=== PATIENT | male | born 1970 | race African-American/Black ===

== ENCOUNTER 2016-07-10 11:31 | Emergency (ER) | payer MEDICAID, OTHER ==
[~2016-07-10] VITALS: Ht 182.9 cm; Wt 81.6 kg
[2016-07-10 12:41] VITALS: BP 126/83
== END 2016-07-10 13:02 | disposition home or self-care (01) ==
LOC: ER 11:32
DX: S80.262A Insect bite (nonvenomous), left knee, initial encounter (principal); L08.9 Local infection of the skin and subcutaneous tissue, unspecified; F17.210 Nicotine dependence, cigarettes, uncomplicated; W57.XXXA Bitten or stung by nonvenomous insect and other nonvenomous arthropods, initial encounter; Y93.89 Activity, other specified; Y99.8 Other external cause status; Y92.85 Railroad track as the place of occurrence of the external cause

== ENCOUNTER → 2017-01-08 11:11 | Emergency (ER) | payer SELFPAY ==
[~2017-01-08] VITALS: Ht 182.9 cm; Wt 97.5 kg
[2017-01-08 12:15] LABS: Basophils # (auto) 0 uL; Basophils % (auto) 0.2 % (0.0-2.0); CONDITION Y; Eosinophils # (auto) 0.1 uL; Eosinophils % (auto) 0.5 % (0.0-7.0); Hematocrit 42.3 % (41.0-53.0); Hemoglobin 13.9 g/dL (13.5-17.5); Lymphocytes # (auto) 2.7 uL; Lymphocytes % (auto) 28.2 % (10.0-50.0); Mean Corpuscular Hemoglobin 29.9 pg (28.0-32.0); Mean Corpuscular Hgb Conc. 32.9 g/dL (32.0-36.0); Mean Corpuscular Volume 90.9 fL (80.0-100.0); Mean Platelet Volume 9.4 fL (7.4-10.4); Monocytes # (auto) 1.1 uL; Monocytes % (auto) 11.4 % (0.0-12.0); Neutrophils # (auto) 5.7 uL; Neutrophils % (auto) 59.7 % (37.0-80.0); Platelet Count (auto) 263 10^3/uL (140-450); Red Cell Distribution Width 13.6 % (11.6-16.0); White Blood Cell 9.6 10^3/uL (4.4-10.8)
[2017-01-08 12:26] VITALS: BP 140/79
[2017-01-08 12:37] LABS: INR 0.94 (0.9-1.15); Partial Thromboplastin Time 27.4 sec (22.64-33.71); Prothrombin Time 10.2 sec (9.37-12.3)
[2017-01-08 12:41] LABS: Urine Bilirubin Negative (Negative); Urine Blood Negative /uL (Negative); Urine Color Yellow (Yellow); Urine Glucose Normal (Normal); Urine Ketone Negative (Negative); Urine Mucus FEW (None Seen); Urine Nitrite Negative (Negative); Urine RBC 1 /hpf (0 - 3); Urine Squamous Epithelial Cell FEW /hpf (<5)
[2017-01-08 12:46] LABS: Albumin 3.4 g/dL (3.4-5.0); BUN/Creatinine Ratio 9.8; Bilirubin, Total 0.6 mg/dL (0.2-1.0); Calcium 9.1 mg/dL (8.5-10.1); Potassium 4.3 mmol/L (3.5-5.1); Total Protein 8.1 g/dL (6.4-8.2)
== END | disposition home or self-care (01) ==
LOC: ER 11:11
DX: K64.8 Other hemorrhoids (principal); F17.210 Nicotine dependence, cigarettes, uncomplicated
CPT/HCPCS: 36415; 80053; 81001; 85025; 85610; 85730

== ENCOUNTER 2017-09-29 20:21 | Emergency (ER) | payer OTHER ==
[~2017-09-29] VITALS: Ht 182.9 cm; Wt 95.3 kg
[2017-09-29 21:14] LABS: Basophils # (auto) 0.1 uL; Basophils % (auto) 1.2 % (0.0-2.0); Eosinophils # (auto) 0 uL; Eosinophils % (auto) 0.3 % (0.0-7.0); Hematocrit 42.4 % (41.0-53.0); Hemoglobin 14.3 g/dL (13.5-17.5); Lymphocytes # (auto) 3.6 uL; Lymphocytes % (auto) 28.8 % (10.0-50.0); Mean Corpuscular Hemoglobin 29.3 pg (28.0-32.0); Mean Corpuscular Hgb Conc. 33.6 g/dL (32.0-36.0); Monocytes # (auto) 1.3 uL; Monocytes % (auto) 10.5 % (0.0-12.0); Neutrophils # (auto) 7.4 uL; Neutrophils % (auto) 59.2 % (37.0-80.0); Platelet Count (auto) 218 10^3/uL (140-450); Red Blood Cells 4.87 10^6/uL (4.5-5.90); Red Cell Distribution Width 13.6 % (11.8-14.3); White Blood Cell 12.5 10^3/uL (4.4-10.8)
[2017-09-29] MEDS ORDERED: LORazepam 2MG/ML-1ML VIAL IV ONE (21:15)
[2017-09-29] MEDS ORDERED: diphenhdrAMINE HCL 50 MG/1 ML VL IV ONE (21:15)
[2017-09-29 21:47] LABS: Alcohol, Urine < 3.0 mg/dL (0-5); Barbiturate Scree,Urine NEGATIVE (NEGATIVE); Opiate Scree,Urine NEGATIVE (NEGATIVE)
[2017-09-29 21:48] LABS: Amphetamine Screen, Urine POSITIVE (NEGATIVE); Benzodiazephine Screen, Urine NEGATIVE (NEGATIVE); Cannabinoid Screen, Urine NEGATIVE (NEGATIVE); Cocaine Screen, Urine NEGATIVE (NEGATIVE); Phencyclidine Screen, Urine NEGATIVE (NEGATIVE)
[2017-09-29 21:52] LABS: Anion Gap 11 (5-15); Carbon Dioxide 20 mmol/L (21-32); Chloride 107 mmol/L (98-107); Glucose 110 mg/dL (74-106); Potassium 3.7 mmol/L (3.5-5.1); Sodium 138 mmol/L (136-145)
[2017-09-29 21:53] LABS: Alanine Aminotransferase 29 U/L (16-61); Alkaline Phosphatase 82 U/L (45-117); Aspartate Aminotransferase 39 U/L (15-37); BUN/Creatinine Ratio 12.3; Bilirubin, Total 1.4 mg/dL (0.2-1.0); Blood Urea Nitrogen 18 mg/dL (7-18); Calcium 9.2 mg/dL (8.5-10.1); GFR African American 67 mL/min; GFR Non-African American 56 mL/min; Total Protein 9.6 g/dL (6.4-8.2)
[2017-09-29 21:54] LABS: Albumin 3.8 g/dL (3.4-5.0); Blood Alcohol < 3.0 mg/dL (0-5)
[2017-09-29 23:12] VITALS: BP 145/88
== END 2017-09-29 23:16 | disposition home or self-care (01) ==
LOC: ER 20:21
DX: F41.9 Anxiety disorder, unspecified (principal); F17.210 Nicotine dependence, cigarettes, uncomplicated; M79.641 Pain in right hand
CPT/HCPCS: 36415; 73120; 80053; 80307; 80320; 85025; 96374; 96375; 99285; J1200; J2060

== ENCOUNTER 2019-08-18 14:40 | Emergency (ER) | payer MEDICAID, OTHER ==
[~2019-08-18] VITALS: Ht 185.4 cm; Wt 84.4 kg
[2019-08-18 15:23] VITALS: BP 107/79
== END 2019-08-18 15:24 | disposition home or self-care (01) ==
LOC: EDBD 14:40 → ER 14:42
DX: J20.9 Acute bronchitis, unspecified (principal)

== ENCOUNTER 2019-11-09 19:34 | Emergency (ER) | payer MEDICAID, OTHER ==
[~2019-11-09] VITALS: Ht 182.9 cm; Wt 64.0 kg
[2019-11-09] MEDS ORDERED: LIDOCAINE 1% HCL (LOCAL ANESTH.) INJ 20ML MDV IJ ONE (20:15)
[2019-11-09] MEDS ORDERED: methylPREDNISolone SOD SUCC 125 MG/2 ML VL IM ONE (20:15)
[2019-11-09] MEDS ORDERED: cefTRIAXone SOD 1,000 MG VL IM ONE (20:15)
[2019-11-09 20:29] VITALS: BP 141/100
== END 2019-11-09 20:55 | disposition home or self-care (01) ==
LOC: ER 19:34
DX: G51.0 Bell's palsy (principal); H65.93 Unspecified nonsuppurative otitis media, bilateral; J01.00 Acute maxillary sinusitis, unspecified; J02.9 Acute pharyngitis, unspecified

== ENCOUNTER 2020-09-06 12:29 | Emergency (ER) | payer MEDICAID, OTHER ==
[~2020-09-06] VITALS: Ht 182.9 cm; Wt 99.8 kg
[2020-09-06 13:30] VITALS: BP 118/74
== END 2020-09-06 14:57 | disposition home or self-care (01) ==
LOC: ER 12:29
DX: S09.90XA Unspecified injury of head, initial encounter (principal); F17.210 Nicotine dependence, cigarettes, uncomplicated; F12.10 Cannabis abuse, uncomplicated; F15.10 Other stimulant abuse, uncomplicated; V89.2XXA Person injured in unspecified motor-vehicle accident, traffic, initial encounter; Y93.89 Activity, other specified; Y92.89 Other specified places as the place of occurrence of the external cause; Y99.8 Other external cause status
CPT/HCPCS: 70450; 93005

== ENCOUNTER 2021-02-01 11:30 | Emergency (ER) | payer MEDICAID, OTHER ==
[~2021-02-01] VITALS: Ht 185.4 cm; Wt 90.7 kg
[2021-02-01 12:03] VITALS: BP 146/94
[2021-02-01] MEDS ORDERED: SODIUM CHLORIDE 0.9% 1,000 ML IV ONE (12:15)
[2021-02-01] MEDS ORDERED: SODIUM CHLORIDE 0.9% 500 ML IVB ONE (12:15)
[2021-02-01] MEDS ORDERED: NALOXONE HCL 1MG/ML 2ML SYRINGE IV ONE (12:15)
[2021-02-01 12:30] LABS: Basophils # (auto) 0 10 ^3/uL (0-0.2); Basophils % (auto) 1.1 % (0.0-2.0); Eosinophils # (auto) 0 10 ^3/uL (0-0.8); Eosinophils % (auto) 0.3 % (0.0-7.0); Hematocrit 35.1 % (41.0-53.0); Hemoglobin 12.2 g/dL (13.5-17.5); Lymphocytes # (auto) 0.7 10 ^3/uL (0.4-5.4); Lymphocytes % (auto) 15.3 % (10.0-50.0); Mean Corpuscular Hemoglobin 30.8 pg (28.0-32.0); Mean Corpuscular Hgb Conc. 34.8 g/dL (32.0-36.0); Mean Corpuscular Volume 88.5 fL (80.0-100.0); Monocytes # (auto) 0.4 10 ^3/uL (0-1.3); Monocytes % (auto) 10.4 % (0.0-12.0); Neutrophils # (auto) 3.1 10 ^3/uL (1.6-8.6); Neutrophils % (auto) 72.9 % (37.0-80.0); Nucleated Red Blood Cells % 0.2 %; Red Blood Cells 3.97 10^6/uL (4.5-5.90); Red Cell Distribution Width 13.9 % (11.8-14.3); White Blood Cell 4.3 10^3/uL (4.4-10.8)
[2021-02-01 12:49] LABS: Anion Gap 7 (5-15); Blood Alcohol < 3.0 mg/dL (0-5); Blood Urea Nitrogen 8 mg/dL (7-18); Calcium 7.9 mg/dL (8.5-10.1); Carbon Dioxide 22 mmol/L (21-32); Chloride 112 mmol/L (98-107); Glucose 88 mg/dL (74-106); Magnesium 1.9 mg/dL (1.6-2.6); Potassium 3.2 mmol/L (3.5-5.1); Sodium 141 mmol/L (136-145)
[2021-02-01 12:52] LABS: Alanine Aminotransferase 15 U/L (16-61); Alkaline Phosphatase 71 U/L (45-117); Aspartate Aminotransferase 15 U/L (15-37); BUN/Creatinine Ratio 9.1; GFR African American 119 mL/min; GFR Non-African American 98 mL/min; Total Protein 7.4 g/dL (6.4-8.2)
== END 2021-02-01 13:38 | disposition left against medical advice (07) ==
LOC: ER 11:30
DX: T40.601A Poisoning by unspecified narcotics, accidental (unintentional), initial encounter (principal); R41.82 Altered mental status, unspecified; G93.89 Other specified disorders of brain; E87.6 Hypokalemia; E46 Unspecified protein-calorie malnutrition; Z68.26 Body mass index [BMI] 26.0-26.9, adult; Y92.89 Other specified places as the place of occurrence of the external cause
CPT/HCPCS: 36415; 80053; 80320; 83735; 85025; 93005; 99284; J7030; J7040

== ENCOUNTER 2021-05-19 10:42 | Emergency (ER) | payer MEDICAID, OTHER ==
[2021-05-19] MEDS ORDERED: cefTRIAXone W LIDOCAINE 1 GM IM IM ONE (13:30)
[2021-05-19] MEDS ORDERED: CLINDAMYCIN 600 MG/4 ML VL IM ONE (13:30)
== END 2021-05-19 13:46 | disposition left against medical advice (07) ==
LOC: ER 10:42
DX: L03.114 Cellulitis of left upper limb (principal)
CPT/HCPCS: 99281; J0696

== ENCOUNTER 2021-05-30 11:30 | Emergency (ER) | payer OTHER ==
[~2021-05-30] VITALS: Ht 182.9 cm; Wt 93.0 kg
[2021-05-30 12:16] VITALS: BP 149/94
[2021-05-30] MEDS ORDERED: PENICILLIN G BENZ 1200000 UNITS/2 ML SYRG IM ONE (13:00)
== END 2021-05-30 13:06 | disposition home or self-care (01) ==
LOC: ER 11:30
DX: A53.9 Syphilis, unspecified (principal); F17.210 Nicotine dependence, cigarettes, uncomplicated
CPT/HCPCS: 96372; 99283; J0561

== ENCOUNTER 2021-06-06 12:05 | Emergency (ER) | payer OTHER ==
[~2021-06-06] VITALS: Ht 182.9 cm; Wt 93.0 kg
[2021-06-06] MEDS ORDERED: PENICILLIN G BENZ 1200000 UNITS/2 ML SYRG IM ONE (16:00)
[2021-06-06 16:30] VITALS: BP 134/98
== END 2021-06-06 16:47 | disposition home or self-care (01) ==
LOC: ER 12:05
DX: B20 Human immunodeficiency virus [HIV] disease (principal); F17.210 Nicotine dependence, cigarettes, uncomplicated
CPT/HCPCS: 96372; 99283; J0561

== ENCOUNTER 2021-07-27 10:41 | Emergency (ER) | payer MEDICAID ==
[~2021-07-27] VITALS: Ht 182.9 cm; Wt 95.3 kg
[2021-07-27] MEDS ORDERED: BICT1TAB PO (11:06)
[2021-07-27 11:12] VITALS: BP 131/98
== END 2021-07-27 11:18 | disposition home or self-care (01) ==
LOC: ER 10:41
DX: F17.210 Nicotine dependence, cigarettes, uncomplicated (principal); Z76.0 Encounter for issue of repeat prescription; Z21 Asymptomatic human immunodeficiency virus [HIV] infection status